=== PATIENT | female | born 1980 | race Two or more races ===

== ENCOUNTER 2020-01-28 06:53 | Outpatient (NON) | payer OTHER, SELFPAY ==
[2020-01-29 23:03] LABS: SARS-CoV-2 RNA PCR Negative
== END 2020-01-28 06:54 ==
LOC: ANHCOVIDDT 07:04
PROVIDERS: PCP Family Medicine; Visit Provider Family Medicine
DX: Z20.828 Contact with and (suspected) exposure to other viral communicable diseases (principal); R09.89 Other specified symptoms and signs involving the circulatory and respiratory systems
CPT/HCPCS: 87635; C9803; U0003

== ENCOUNTER 2023-04-05 15:58 | Emergency (ER) | payer OTHER, SELFPAY ==
--- NOTE | ~2023-04-05 | XR_ITS ---
EXAMINATION: XR chest 2V Exam Date/Time: 04/05/2023 16:17 TWILL CUTTER HISTORY: CHEST PRESSURE FOR 2 DAYS Comparison: 11/09/2011. RESULT: Lines, tubes, and devices: Cholecystectomy clips. Lungs and pleura: No focal consolidation or pneumothorax. Minimal right posterior costophrenic angle blunting. Cardiomediastinal silhouette: Stable. Other: No acute osseous or upper abdominal finding. IMPRESSION: Trace right pleural effusion versus chronic pleural blunting. Reviewed, dictated and finalized at location [facility]
[2023-04-05 16:08] VITALS: BP 140/82; PULSE 69; RESP 16; TEMP 36.6; O2SAT 100
--- NOTE | 2023-04-05 16:10 | ECG_ITS ---
Measurements Intervals [place] Rate: 65 P: 129 LA: 126 QRS: 52 QRSD: 82 T: 113 QT: 399 QTc: 418 Interpretive Statements SINUS RHYTHM LOW QRS VOLTAGE IN EXTREMITY LEADS POSSIBLE ANTERIOR MYOCARDIAL INFARCTION , OF INDETERMINATE AGE Electronically Signed On 04-06-2023 11:34:12 FRAMING MILL OPERATOR by Stefano Ruby M.D.
[2023-04-05 16:24] LABS: Basophils Percent Auto 0.5 % (0.2-1.2); Eosinophils Absolute Auto 0.1 K/mm3 (0-0.3); Eosinophils Percent Auto 1.1 % (0-4.4); Hemoglobin 11.5 g/dL (12.0-15.0); Immature Granulocyte Absolute 0.01 K/mm3 (0.00-0.031); Immature Granulocyte Percent A 0.2 % (0-0.5); Lymphocytes Percent Auto 27.8 % (18.3-44.2); Mean Corpuscular HGB Conc 31.1 g/dl (32-36); Mean Corpuscular Hemoglobin 24.5 pg (26-34); Mean Corpuscular Volume 78.9 fl (80-100); Mean Platelet Volume 10.2 fl (7.4-10.4); Monocytes Absolute Auto 0.3 K/mm3 (0.1-0.6); Monocytes Percent Auto 5.1 % (2.6-8.5); Neutrophils Absolute Auto 4.2 K/mm3 (1.3-6.7); Neutrophils Percent Auto 65.3 % (45.5-73.1); Platelet Count Result 262 k/mm3 (150-375); Red Blood Count 4.69 M/mm3 (4.2-5.4); Red Cell Distribution Width 14.1 % (11.5-14.5); White Blood Count 6.5 K/mm3 (4.5-10.0)
[2023-04-05 16:33] LABS: Partial Thromboplastin Time 34.3 SECONDS (22.3-36.8); Prothrombin Time 13.5 Seconds (11.1-14.7)
[2023-04-05 16:36] LABS: Alanine Aminotransferase 52 U/L (6-35); Albumin Level 4.5 g/dL (3.5-5.1); Alkaline Phosphatase 72 U/L (38-126); Anion Gap 8 mmol/L (8-16); Aspartate Amino Transferase 46 U/L (14-36); Bilirubin,Total 0.6 mg/dL (0.2-1.3); Blood Urea Nitrogen 10 mg/dL (7-17); Calcium 9.7 mg/dL (8.4-10.2); Carbon Dioxide 29 mmol/L (22-30); Chloride 101 mmol/L (98-107); Estimated CRCL calculation 109 ml/min; Estimated Glomerular Filt Rate > 60; Glucose 95 mg/dL (65-110); Lipase 87 U/L (23-300); Potassium 3.8 mmol/L (3.4-5.0); Sodium 138 mmol/L (137-145)
[2023-04-05 16:48] LABS: Troponin I < 0.012 ng/mL (0.000-0.034)
--- NOTE | 2023-04-05 17:38 | ED.ARRPALP ---
HPI - Arrhythmia/Palpitations General Chief Complaint: Arrhythmia/Palpitations <Raleigh Collier MD - Last Filed: 04/06/23 08:13> Stated Complaint: irregular heartbeat <Raleigh Collier MD - Last Filed: 04/06/23 08:13> Time Seen by Provider: 04/05/23 17:16 <Raleigh Collier MD - Last Filed: 04/06/23 08:13> History of Present Illness HPI narrative: 42-year-old female presents to the emergency department for evaluation left-sided chest pressure that is been ongoing for the past 2 days. Patient states she has no prior cardiac history. Patient states he has been having some restless sleep well the past few nights. Patient denies any cough colds or fevers. Patient denies any falls or injuries. Patient denies any history of PE DVT. <Raleigh Collier MD - Last Filed: 04/06/23 08:13> Related Data Home Medications: Home Medications Medication Instructions Recorded Confirmed levothyroxine 125 mcg tablet 125 mcg PO DAILY 12/23/22 12/23/22 (Synthroid) <Raleigh Collier MD - Last Filed: 04/06/23 08:13> Allergies/Adverse Reactions: Allergies Allergy/AdvReac Type Severity Reaction Status Date / Time No Known Allergies Allergy Unknown Verified 04/05/23 16:10 <Raleigh Collier MD - Last Filed: 04/06/23 08:13> Review of Systems Review of Systems: All systems reviewed & are unremarkable except as noted in HPI and below <Raleigh Collier MD - Last Filed: 04/06/23 08:13> [facility] Past Medical History Medical History: Medical History (Updated 04/06/23 @ 00:00 by Violeta Lew) Anemia Hypothyroid <Raleigh Collier MD - Last Filed: 04/06/23 08:13> Surgical History Surgical History: Surgical History (Updated 12/23/22 @ 09:37 by Ayde Khan MA) H/O colposcopy with cervical biopsy 2017 Hx of cholecystectomy <Raleigh Collier MD - Last Filed: 04/06/23 08:13> Family History Family History: Family History Mother Hypothyroidism <Raleigh Collier MD - Last Filed: 04/06/23 08:13> Social History Social History: Social History (Updated 12/23/22 @ 09:32 by Ayde Khan MA) Smoking status: Never smoker Alcohol intake: current Alcohol use details: socially Substance use: never Substance use type: does not use Lack of Transportation: No Lack of Food: Never True Current Housing: I Have Housing Concerned About Future Housing: No Difficulty Paying Gas/Electric Bills: No Difficulty Paying for Meds: No Currently Unemployed: No Education: Bachelor's Degree Difficulty w/ Childcare or Family Care: No Living arrangements: with family Occupation/Education: unemployed Gender identity (if verbalized by the patient): Female Sexual Orientation (if Verbalized by the Patient): Straight or Heterosexual <Raleigh Collier MD - Last Filed: 04/06/23 08:13> Exam Narrative: APPEARANCE: Well appearing, no pain, no distress, well-nourished. HEAD: normocephalic, atraumatic. EYES: PERRLA/EOMI, conjunctivae clear. NOSE: Normal no drainage EARS:TMS clear with good light reflex. THROAT: Pharynx clear, no exudate. NECK: Supple. No adenopathy, no masses. RESPIRATORY: Airway patent, respirations nonlabored. Clear to auscultation bilaterally, no rales, rhonchi, wheezing. CARDIOVASCULAR: Regular rate and rhythm without murmurs rubs or gallops. ABDOMINAL: Soft, nontender, nondistended, normal bowel sounds MUSCULOSKELETAL: Moves all extremities. Strength/ROM intact, No edema, No calf tenderness. NEURO: Alert. Cranial nerves II through XII intact. Grossly intact SKIN: Warm, dry. Normal Color <Raleigh Collier MD - Last Filed: 04/06/23 08:13> Course Course Emergency Course: 42-year-old female presented emergency department for evaluation of left-sided chest pressure. Patient is afebrile with no leukocytosis stable hemoglobin 11.5. Patient has an INR of 1.0. Patient's initia
[2023-04-05 18:07] VITALS: BP 135/82; PULSE 62; RESP 18; O2SAT 100
[2023-04-05 18:24] LABS: Influenza A QL RT-PCR Negative (Negative); Influenza B QL RT-PCR Negative (Negative); RSV RNA, RT-PCR Negative (Negative); SARS-CoV-2 RNA PCR Negative (Negative)
[2023-04-05] MEDS: ASPIRIN 81 MG CHEWABLE TABLET 324 MG PO (18:37)
[2023-04-05 18:39] VITALS: O2SAT 100
[2023-04-05 18:40] LABS: D Dimer 0.31 ug/mL (<0.48)
[2023-04-05 19:15] VITALS: BP 131/87; PULSE 65; RESP 16; O2SAT 100
[2023-04-05] MEDS: KETOROLAC 15 MG/ML VIAL (*BKC) IV PUSH (19:16)
--- NOTE | 2023-04-05 19:19 | ECG_ITS ---
Measurements Intervals [place] Rate: 57 P: 44 FL: 126 QRS: 34 QRSD: 83 T: 38 QT: 439 QTc: 428 Interpretive Statements SINUS BRADYCARDIA Electronically Signed On 04-06-2023 11:35:02 SNUFF MAKER by Stefano Ruby M.D.
[2023-04-05 19:40] LABS: Troponin I < 0.012 ng/mL (0.000-0.034)
[2023-04-05 20:09] VITALS: BP 143/93; PULSE 69; RESP 20; O2SAT 100
== END 2023-04-05 20:09 | disposition home or self-care (01) ==
PROVIDERS: Emergency Medicine; Emergency Provider Emergency Medicine; PCP Family Medicine
DX: R07.89 Other chest pain (principal); Z20.822 Contact with and (suspected) exposure to COVID-19; D64.9 Anemia, unspecified; E03.9 Hypothyroidism, unspecified; Z90.49 Acquired absence of other specified parts of digestive tract; R94.31 Abnormal electrocardiogram [ECG] [EKG]; R00.1 Bradycardia, unspecified
CPT/HCPCS: 36415; 71046; 80053; 83690; 84484; 85025; 85380; 85610; 85730; 87637; 93005; 96374; 99284; A9270; J1885

== ENCOUNTER 2023-08-08 09:29 | Outpatient (CLI) | payer OTHER, SELFPAY ==
[2023-08-08 18:36] LABS: Hemoglobin 11.3 g/dL (12.0-15.0); Mean Corpuscular HGB Conc 31.4 g/dl (32-36); Mean Corpuscular Hemoglobin 25.5 pg (26-34); Mean Corpuscular Volume 81.1 fl (80-100); Mean Platelet Volume 10.9 fl (7.4-10.4); Platelet Count Result 242 k/mm3 (150-375); Red Blood Count 4.44 M/mm3 (4.2-5.4); Red Cell Distribution Width 13.6 % (11.5-14.5); White Blood Count 6.4 K/mm3 (4.5-10.0)
[2023-08-08 18:39] LABS: Alanine Aminotransferase 29 U/L (6-35); Albumin Level 4.3 g/dL (3.5-5.1); Alkaline Phosphatase 59 U/L (38-126); Anion Gap 5 mmol/L (4-12); Aspartate Amino Transferase 31 U/L (14-36); Bilirubin,Total 0.6 mg/dL (0.2-1.3); Blood Urea Nitrogen 14 mg/dL (7-17); Calcium 9.3 mg/dL (8.4-10.2); Carbon Dioxide 28 mmol/L (22-30); Chloride 102 mmol/L (98-107); Cholesterol 172 mg/dL (0-200); Estimated Glomerular Filt Rate > 60; Glucose 91 mg/dL (65-110); HDL Direct 59 mg/dL; Potassium 4.3 mmol/L (3.4-5.0); Sodium 135 mmol/L (137-145); Triglycerides 98 mg/dL (<150)
[2023-08-08 18:50] LABS: LDL Cholesterol Direct 83 mg/dL
[2023-08-08 19:05] LABS: Thyroid Stimulating Hormone 0.335 uIU/mL (0.465-4.680)
[2023-08-08 19:44] LABS: Free T4 Free Thyroxine 1.37 ng/mL (0.78-2.19)
[2023-08-08 20:16] LABS: Iron 47 ug/dL (37-170)
[2023-08-08 20:23] LABS: Percent Iron Saturation 13 % (20-50)
[2023-08-12 11:39] LABS: Vitamin D 1,25 (OH)2 Total 32 pg/mL (18-72); Vitamin D2 1,25 (OH)2 10 pg/mL; Vitamin D3 1,25 (OH)2 22 pg/mL
== END 2023-08-08 09:30 | disposition home or self-care (01) ==
LOC: ANHGOSHLAB 09:29
PROVIDERS: PCP Family Medicine; Visit Provider Family Medicine
DX: E55.9 Vitamin D deficiency, unspecified (principal); E03.9 Hypothyroidism, unspecified; E66.9 Obesity, unspecified; Z79.899 Other long term (current) drug therapy; E61.1 Iron deficiency
CPT/HCPCS: 36415; 80053; 80061; 82652; 82728; 83540; 83550; 84439; 84443; 85027

== ENCOUNTER 2023-08-11 13:28 | Outpatient (CLI) | payer OTHER, SELFPAY ==
--- NOTE | ~2023-08-11 | US_ITS ---
Thyroid ultrasound. Clinical History: Thyroid disorder, nonspecific Findings: Real-time sonography of the thyroid gland was performed. The right lobe measures 5.1 x 2.3 x 1.7 cm. The left lobe measures 4.2 x 2.0 x 1.4 cm. The isthmus is 6 mm in AP diameter. Thyroid parenchyma is heterogeneous, without discrete nodule. Impression: Heterogeneous thyroid parenchyma without discrete nodule. Correlate with thyroid function tests as in dicated. Consider thyroid uptake scan as indicated.. Reviewed, dictated and finalized at location . Impression: Heterogeneous thyroid parenchyma without discrete nodule. Correlate with thyroi d function tests as indicated. Consider thyroid uptake scan as indicated..
== END 2023-08-11 13:29 ==
LOC: GOSHIMG 13:28
PROVIDERS: PCP Family Medicine; Visit Provider Family Medicine
DX: E07.9 Disorder of thyroid, unspecified (principal); E03.9 Hypothyroidism, unspecified
CPT/HCPCS: 76536

== ENCOUNTER 2023-09-02 12:55 | Outpatient (CLI) | payer OTHER, SELFPAY ==
--- NOTE | 2023-09-02 14:45 | NEURO_ITS ---
Impression: # Complains of numbness of upper extremities. # Normal Nerve Conduction Study; No Carpal Tunnel Syndrome or ulnar neuropathy. # Normal needle/EMG exam. # Clinical correlation recommended. Nerve Conduction Studies Anti Sensory Summary Table Stim Site NR Peak (ms) P-T Amp (?V) Site1 Site2 Delta-P (ms) Dist (cm) Roberto (m/s) Left Median Anti Sensory (2-3nd Digit) Wrist 2.9 36.6 Wrist 2-3nd Digit 2.9 14.0 48 Wrist 2.9 65.0 Wrist 2-3nd Digit 2.9 14.0 48 Right Median Anti Sensory (2-3nd Digit) Wrist 2.8 77.2 Wrist 2-3nd Digit 2.8 14.0 50 Wrist 3.1 76.0 Wrist 2-3nd Digit 2.8 14.0 50 Left Radial Anti Sensory (Base 1st Digit) Wrist 1.7 50.2 Wrist Base 1st Digit 1.7 0.0 Right Radial Anti Sensory (Base 1st Digit) Wrist 1.8 34.0 Wrist Base 1st Digit 1.8 0.0 Left Ulnar Anti Sensory (5th Digit) Wrist 2.3 33.2 Wrist 5th Digit 2.3 14.0 61 Right Ulnar Anti Sensory (5th Digit) Wrist 2.1 71.2 Wrist 5th Digit 2.1 14.0 67 Motor Summary Table Stim Site NR Onset (ms) O-P Amp (mV) Site1 Site2 Delta-0 (ms) Dist (cm) Roberto (m/s) Left Median Motor (Abd Poll Brev) Wrist 2.7 2.5 Elbow Wrist 4.8 29.0 60 Elbow 7.5 1.5 Right Median Motor (Abd Poll Brev) Wrist 2.6 3.5 Elbow Wrist 5.4 28.0 52 Elbow 8.0 2.5 Left Ulnar Motor (Abd Dig Minimi) Wrist 2.4 10.3 A Elbow Wrist 5.3 31.0 58 A Elbow 7.7 9.5 Right Ulnar Motor (Abd Dig Minimi) Wrist 2.3 9.7 A Elbow Wrist 5.2 31.0 60 A Elbow 7.5 7.1 F Wave Studies NR F-Lat (ms) L-R F-Lat (ms) Left Median (Mrkrs) (Abd Poll Brev) 25.86 0.62 Right Median (Mrkrs) (Abd Poll Brev) 26.48 0.62 Left Ulnar (Mrkrs) (Abd Dig Min) 25.31 0.70 Right Ulnar (Mrkrs) (Abd Dig Min) 26.02 0.70 EMG Side Muscle Nerve Root Ins Act Fibs Amp Dur Recrt Comment Right 1stDorInt Ulnar C8-T1 Nml Nml Nml Nml Nml Right Ext Indicis Radial (Post Int) C7-8 Nml Nml Nml Nml Nml Right Ext Digitorum Radial (Post Int) C7-8 Nml Nml Nml Nml Nml Right BrachioRad Radial C5-6 Nml Nml Nml Nml Nml Right PronatorTeres Median C6-7 Nml Nml Nml Nml Nml Right Abd Poll Brev Median C8-T1 Nml Nml Nml Nml Nml Right ABD Dig Min Ulnar C8-T1 Nml Nml Nml Nml Nml Left 1stDorInt Ulnar C8-T1 Nml Nml Nml Nml Nml Left Ext Indicis Radial (Post Int) C7-8 Nml Nml Nml Nml Nml Left Ext Digitorum Radial (Post Int) C7-8 Nml Nml Nml Nml Nml Left BrachioRad Radial C5-6 Nml Nml Nml Nml Nml Left PronatorTeres Median C6-7 Nml Nml Nml Nml Nml Left Abd Poll Brev Median C8-T1 Nml Nml Nml Nml Nml Left ABD Dig Min Ulnar C8-T1 Nml Nml Nml Nml Nml Right Biceps Musculocut C5-6 Nml Nml Nml Nml Nml Right Triceps Radial C6-7-8 Nml Nml Nml Nml Nml Right Deltoid Axillary C5-6 Nml Nml Nml Nml Nml Left Biceps Musculocut C5-6 Nml Nml Nml Nml Nml Left Triceps Radial C6-7-8 Nml Nml Nml Nml Nml Left Deltoid Axillary C5-6 Nml Nml Nml Nml Nml MTDD
== END 2023-09-02 12:56 | disposition home or self-care (01) ==
PROVIDERS: PCP Family Medicine; Visit Provider Family Medicine
DX: R20.0 Anesthesia of skin (principal)
CPT/HCPCS: 95886; 95911

== ENCOUNTER 2024-01-16 10:02 | Outpatient (CLI) | payer OTHER, SELFPAY ==
[2024-01-16 12:02] LABS: Hematocrit 34.7 % (37.0-47.0); Hemoglobin 10.9 g/dL (12.0-15.0); Mean Corpuscular HGB Conc 31.4 g/dl (32-36); Mean Corpuscular Volume 79.6 fl (80-100); Mean Platelet Volume 10.8 fl (7.4-10.4); Platelet Count Result 267 k/mm3 (150-375); Red Blood Count 4.36 M/mm3 (4.2-5.4); Red Cell Distribution Width 13.7 % (11.5-14.5); White Blood Count 5.2 K/mm3 (4.5-10.0)
[2024-01-16 12:12] LABS: Alanine Aminotransferase 41 U/L (6-35); Albumin Level 4.6 g/dL (3.5-5.1); Alkaline Phosphatase 55 U/L (38-126); Anion Gap 7 mmol/L (4-12); Aspartate Amino Transferase 53 U/L (14-36); Bilirubin,Total 0.8 mg/dL (0.2-1.3); Blood Urea Nitrogen 15 mg/dL (7-17); Calcium 9.3 mg/dL (8.4-10.2); Carbon Dioxide 30 mmol/L (22-30); Chloride 99 mmol/L (98-107); Cholesterol 212 mg/dL (0-200); Estimated Glomerular Filt Rate > 60; Glucose 93 mg/dL (65-110); HDL Direct 83 mg/dL; Potassium 4.1 mmol/L (3.4-5.0); Sodium 136 mmol/L (137-145); Triglycerides 67 mg/dL (<150)
[2024-01-16 12:13] LABS: Iron 58 ug/dL (37-170)
[2024-01-16 12:17] LABS: Rheumatoid Factor < 12.0 IU/ML (<12)
[2024-01-16 12:23] LABS: LDL Cholesterol Direct 86 mg/dL
[2024-01-16 12:30] LABS: Percent Iron Saturation 14 % (20-50)
[2024-01-16 12:53] LABS: Ferritin 6.48 ng/mL (6.24-137)
[2024-01-19 15:27] LABS: ANA Cascade Screen NEGATIVE (NEGATIVE)
[2024-01-21 13:28] LABS: Vitamin D 1,25 (OH)2 Total 45 pg/mL (18-72); Vitamin D2 1,25 (OH)2 <8 pg/mL; Vitamin D3 1,25 (OH)2 45 pg/mL
== END 2024-01-16 10:03 | disposition home or self-care (01) ==
LOC: ANHGOSHLAB 10:03
PROVIDERS: PCP Family Medicine; Visit Provider Family Medicine
DX: E03.9 Hypothyroidism, unspecified (principal); E55.9 Vitamin D deficiency, unspecified; E61.1 Iron deficiency; E66.9 Obesity, unspecified; M25.50 Pain in unspecified joint; R53.83 Other fatigue; Z79.899 Other long term (current) drug therapy
CPT/HCPCS: 36415; 80053; 80061; 82652; 82728; 83540; 83550; 84439; 84443; 85027; 86038; 86225; 86235; 86364; 86430

== ENCOUNTER 2024-05-14 15:38 | Outpatient (CLI) | payer OTHER, SELFPAY ==
--- NOTE | ~2024-05-14 | MM_ITS ---
EXAMINATION: MM screening laura BI w mercedes HISTORY: Screening TECHNIQUE: Craniocaudal and mediolateral oblique 3-D tomosynthesis images were obtained and synthetic 2-D images were generated. CAD analysis was submitted and interpreted. COMPARISON: No prior mammogram is available for comparison at this institution. BREAST PARENCHYMAL COMPOSITION: Not dense: There are scattered areas of fibroglandular density. FINDINGS: There is no evidence of suspicious mass, calcification, or architectural distortion to sugg est malignancy in either breast. There has been no suspicious interval change. IMPRESSION: 1. No mammographic evidence of malignancy. 2. Recommend routine screening mammography in one year. BI-RADS Category 1: Negative Reviewed, dictated and finalized at location B.
--- OUTSIDE RECORDS SUMMARY | 2024-05-14 15:43 | XMS_ITS ---
Author Organization Unknown Medications Medication Instructions Effective Dates (start - stop) Status fluconazole 150 MG Oral Tablet 2023-04-28 T00:00:00Z - Completed mupirocin 0.02 MG/MG Topical Ointment - Completed fluconazole 150 MG Oral Tablet 2023-05-27 T00:00:00Z - Completed sulfamethoxazole 800 MG / trimethoprim 160 MG Oral Tablet - Compl eted fluconazole 150 MG Oral Tablet 2022-11-26 T00:00:00Z - Completed levothyroxine sodium 0.125 M G Oral Tablet - Completed clobetasol propionate 0.5 MG /ML Topical Cream - Completed clindamycin 0.01 MG/MG Topical Gel 08-06T00:00:00Z - Completed cephalexin 500 MG Oral Capsule 2023-05-27 T00:00:00Z - Completed sulfamethoxazole 800 MG / trimethoprim 160 MG Oral Tablet - Compl eted doxycycline hyclate 100 MG O ral Capsule - Completed naproxen 500 MG Oral Tablet [id number] :00:00Z - Completed fluconazole 150 MG Oral Tablet 2023-02-18 T00:00:00Z - Completed valacyclovir 1000 MG Oral Tablet T00:00:00Z - Completed - - Compl eted clobetasol propionate 0.5 MG /ML Topical Cream - Completed fluconazole 200 MG Oral Tablet 2022-12-27 T00:00:00Z - Completed levothyroxine sodium 0.125 M G Oral Tablet - Completed levothyroxine sodium 0.125 M G Oral Tablet - Completed Patient Care team information Name Category Status Period Participants - - Proposed period not known -
--- OUTSIDE RECORDS SUMMARY | 2024-05-14 15:43 | XMS_ITS | Clinical Summary ---
Author Organization [facility] Address [address] [place] [address] Phone Care Team Providers Care Wildlife Biologist Name Role Phone Kel Puentes MD Primary Care Provider [phone] Allergies No known active allergies Medications levothyroxine 75 mcg tablet Take 75 mcg by mouth daily . 04/02/2018 Active ferrous sulfate 325 mg (65 mg iron) tablet Take 325 mg by mouth daily. Active Active Problems Problem Noted Date Diagnosed Date Vitamin B12 deficiency (non anemic) 06/04/2018 Iron deficiency anemia 05/04/2018 Comments Yes Family History Relation Name Status Comments Father Alive Mother Alive Sister 1 Alive Sister 2 Alive Social History Tobacco Use Types Packs/Day Years Used Date Smoking Tobacco: Never Alcohol Use Standard Drinks/Week Comments Yes 0 (1 standard drink = 0.6 oz pur e alcohol) rare Comments Yes Sex and Gender Information Value Date Recorded Sex Assigned at Not on file Legal Sex Female 9:39 PM PROGRAM SERVICES PLANNER Gender Identity Not on file Sexual Orientation Not on file Last Filed Vital Signs Vital Sign Reading Time Taken Comments Blood Pressure 110/69 06/04/2018 11:56 AM CDT Pulse 87 05/04/2018 8:46 AM PROGRAM SERVICES PLANNER Temperature 36.6 C (97.8 F) 06/04/2018 11:56 AM CDT Respiratory Rate 20 05/04/2018 8:46 AM PROGRAM SERVICES PLANNER Oxygen Saturation 97% 06/04/2018 11:56 AM CDT Inhaled Oxygen Concentration - - Weight 101.2 kg (223 lb) 06/04/2018 11:56 AM CDT Height 170.2 cm (5' 7 ) 06/04/2018 11:56 AM CDT Body Mass Index 34.93 06/04/2018 11:56 AM CDT Plan of Treatment Health Maintenance Due Date Last Done Comments DTAP/TDAP/TD VACCINES (1 - Tdap) 08/23/1998 HEPATITIS B VACCINES (1 of 3 - 19+ 3-dose series) 08/23/1998 CERVICAL CANCER SCREENING 08/23/2009 BREAST CANCER SCREENING 2019 INFLUENZA VACCINE (#1) 2023 RSV VACCINE (60+ or ) (1 - 1-dose 75+ series) 08/23/2054 HPV VACCINES Aged Out No longer eligi ble based on patient's age to complete this topic PNEUMOCOCCAL VACCINE 0-49 YEARS Aged Out No longer eligible based on patient's age to complete this topic Insurance [employer] OPEN ACCESS [employer] OPEN ACCESS Care Teams Wildlife Biologist Relationship Specialty Start Date End Date Kel Puentes MD PCP - General Family Practice 05/04/18
== END 2024-05-14 15:39 | disposition home or self-care (01) ==
PROVIDERS: PCP Family Medicine; Visit Provider Obstetrics & Gynecology
DX: Z12.31 Encounter for screening mammogram for malignant neoplasm of breast (principal)
CPT/HCPCS: 77063; 77067

== ENCOUNTER 2024-06-16 08:13 | Outpatient (CLI) | payer OTHER, SELFPAY ==
--- OUTSIDE RECORDS SUMMARY | 2024-06-16 08:25 | XMS_ITS | Clinical Summary ---
Author Organization [facility] Address [address] [place] [address] Phone Care Team Providers Care Business Associate Name Role Phone Kel Puentes MD Primary Care Provider [phone] Allergies No known active allergies Medications levothyroxine [...] on file Legal Sex Female 9:39 PM MINING PLANT OPERATOR Gender Identity Not on file Sexual Orientation Not on file Last Filed Vital Signs Vital Sign Reading Time Taken Comments Blood Pressure 110/69 06/04/2018 11:56 AM CDT Pulse 87 05/04/2018 8:46 AM MINING PLANT OPERATOR Temperature 36.6 C (97.8 F) 06/04/2018 11:56 AM CDT Respiratory Rate 20 05/04/2018 8:46 AM MINING PLANT OPERATOR Oxygen Saturation 97% 06/04/2018 11:56 AM CDT [...] of 3 - 19+ 3-dose series) 08/23/1998 HPV/Cotest (21-29) 08/23/2000 PAP SMEAR 08/23/2000 CERVICAL CANCER SCREENING 08/23/2009 HPV/Cotest (30-65) 08/23/2009 PAP SMEAR 08/23/2009 BREAST CANCER SCREENING 2019 INFLUENZA VACCINE (#1) 2023 RSV VACCINE (60+ or ) (1 - 1-dose 75+ series) 08/23/2054 HPV VACCINES Aged Out No longer eligi ble based on patient's age to complete this topic PNEUMOCOCCAL VACCINE 0-49 YEARS Aged Out No longer eligible based on patient's age to complete this topic Insurance [employer] OPEN ACCESS [employer] OPEN ACCESS Care Teams Business Associate Relationship Specialty Start Date End Date Kel Puentes MD PCP - General Family Practice 05/04/18
[2024-06-16 13:17] LABS: Hematocrit 33.2 % (37.0-47.0); Mean Corpuscular HGB Conc 30.1 g/dl (32-36); Mean Corpuscular Hemoglobin 24.1 pg (26-34); Mean Platelet Volume 10.5 fl (7.4-10.4); Platelet Count Result 252 k/mm3 (150-375); Red Blood Count 4.15 M/mm3 (4.2-5.4); Red Cell Distribution Width 14.6 % (11.5-14.5); White Blood Count 5.4 K/mm3 (4.5-10.0)
[2024-06-16 13:59] LABS: Iron 37 ug/dL (37-170)
[2024-06-16 14:10] LABS: Percent Iron Saturation 9 % (20-50)
[2024-06-16 14:18] LABS: Free T4 Free Thyroxine 1.06 ng/dL (0.78-2.19)
[2024-06-16 14:53] LABS: Alanine Aminotransferase 26 U/L (6-35); Albumin Level 4.2 g/dL (3.5-5.1); Alkaline Phosphatase 50 U/L (38-126); Anion Gap 7 mmol/L (4-12); Aspartate Amino Transferase 48 U/L (14-36); Bilirubin,Total 0.3 mg/dL (0.2-1.3); Blood Urea Nitrogen 13 mg/dL (7-17); Calcium 8.8 mg/dL (8.4-10.2); Carbon Dioxide 29 mmol/L (22-30); Chloride 102 mmol/L (98-107); Cholesterol 182 mg/dL (0-200); Estimated Glomerular Filt Rate > 60; Glucose 88 mg/dL (65-110); HDL Direct 63 mg/dL; Potassium 4.7 mmol/L (3.4-5.0); Sodium 138 mmol/L (137-145); Triglycerides 91 mg/dL (<150)
[2024-06-16 15:04] LABS: LDL Cholesterol Direct 80 mg/dL
== END 2024-06-16 08:14 | disposition home or self-care (01) ==
LOC: ANHGOSHLAB 08:14
PROVIDERS: PCP Nurse Practitioner; Visit Provider Nurse Practitioner
DX: E61.1 Iron deficiency (principal); E03.9 Hypothyroidism, unspecified; D64.9 Anemia, unspecified; E78.5 Hyperlipidemia, unspecified
CPT/HCPCS: 36415; 80053; 80061; 82728; 83540; 83550; 84439; 84443; 85027

== ENCOUNTER 2024-06-16 08:34 | Outpatient (CLI) | payer OTHER, SELFPAY ==
--- NOTE | ~2024-06-16 | XR_ITS ---
Cervical Spine: AP, lateral, open-mouth views Clinical History: Pain Findings: There is mild reversal of the normal cervical lordosis. No fracture or subluxation. There i s mild degenerative disc change at C5-C6. Pre-vertebral soft tissues are unremarkable. Impression: Minimal degenerative change, as above. Reviewed, dictated and finalized at [facility]. Impression: Minimal degenerative change, as above.
== END 2024-06-16 08:35 | disposition home or self-care (01) ==
LOC: GOSHIMG 08:34
PROVIDERS: PCP Nurse Practitioner; Visit Provider Nurse Practitioner
DX: M54.2 Cervicalgia (principal); M25.562 Pain in left knee
CPT/HCPCS: 72040; 73562

== ENCOUNTER 2024-06-16 12:29 | Outpatient (CLI) | payer OTHER, SELFPAY ==
--- NOTE | ~2024-06-16 | US_ITS ---
Thyroid ultrasound. Clinical History: Disorder of thyroid, unspecified Findings: Real-time sonography of the thyroid gland was performed. The right lobe measures 4.0 x 1.8 x 2.5 cm. The left lobe measures 4.8 x 1.6 x 2.0 cm. The isthmus is 7 mm in AP diameter. Thyroid par enchyma is diffusely heterogeneous, without definite discrete nodule. Impression: Heterogeneous thyroid parenchyma without discrete nodule.. Reviewed, dictated and finalized at [facility]. Impression: Heterogeneous thyroid parenchyma without discrete nodule..
== END 2024-06-16 12:30 | disposition home or self-care (01) ==
LOC: GOSHIMG 12:29
PROVIDERS: PCP Nurse Practitioner; Visit Provider Nurse Practitioner
DX: E07.9 Disorder of thyroid, unspecified (principal)
CPT/HCPCS: 76536

== ENCOUNTER 2024-07-20 17:44 | Emergency (ER) | payer OTHER, SELFPAY ==
[2024-07-20 17:54] VITALS: BP 119/85; PULSE 87; RESP 16; TEMP 36.6; O2SAT 100
[2024-07-20 18:03] LABS: EDSTREPNEGPOS1 Negative (Negative)
--- NOTE | 2024-07-20 18:07 | ED.URI ---
HPI - URI/Sore Throat General Chief Complaint: Upper Respiratory Infection Stated Complaint: Strep Symptoms Time Seen by Provider: 07/20/24 18:01 Source: patient and RN notes reviewed Mode of arrival: ambulatory Limitations: no limitations History of Present Illness HPI Narrative: 43 year old female presents with concern of for exposure to strep throat. Reports her daughter has strep throat. Reports she started having a sore throat today with chills. She denies runny nose, stuffy nose, cough, fever. She has not taken any medications for her symptoms. MD elicited complaint: cough and sore throat Related Data Home Medications ?Medication ?Instructions ?Recorded ?Confirmed ?Last Taken ?Type magnesium 200 mg tablet 200 mg PO DAILY 08/07/23 06/16/24 Unknown History mecobalamin (vitamin B12) 500 mcg mcg PO 08/07/23 06/16/24 Unknown History chewable tablet ferrous sulfate 325 mg (65 mg 325 mg PO .COMPLEX 06/16/24 06/16/24 Unknown History iron) tablet Allergies Allergy/AdvReac Type Severity Reaction Status Date / Time No Known Allergies Allergy Unknown Verified 07/20/24 17:50 Review of Systems Review of Systems: CONSTITUTIONAL: Denies malaise, sweats, or fever. Reports chills EYES: Denies visual changes, redness, or discharge. ENT: Denies rhinorrhea, congestion, sinus pain, otalgia. Reports sore throat. CARDIOVASCULAR: Denies chest pain, palpitations, or edema. RESPIRATORY: Denies cough. Denies dyspnea. GASTROINTESTINAL: Denies abdominal pain, nausea, vomiting, diarrhea SKIN: Denies rash or itching. MUSCULOSKELETAL: Denies myalgia. NEUROLOGIC: Denies headache. All systems reviewed & are unremarkable except as noted in HPI and below PMFSH Past Medical History Medical History Anemia Hypothyroid Surgical History Surgical History H/O colposcopy with cervical biopsy 2017 Hx of cholecystectomy Family History Family History Mother Hypothyroidism Social History Social History Smoking status: Never smoker Alcohol intake: current Alcohol use details: socially Substance use: never Substance use type: does not use Do You Feel Safe in your Home?: Yes Lack of Transportation: No Lack of Food: Never True Current Housing: Decline to Answer Concerned About Future Housing: Decline to Answer Difficulty Paying Gas/Electric Bills: Decline to Answer Difficulty Paying for Meds: Decline to Answer Currently Unemployed: Decline to Answer Education: Decline to Answer Difficulty w/ Childcare or Family Care: Decline to Answer Living arrangements: with family Occupation/Education: occupation Gender identity (if verbalized by the patient): Female Sexual Orientation (if Verbalized by the Patient): Straight or Heterosexual Comments At time of signature, agree with nursing past medical, surgical, social and family history. There is no relevant family history pertinent to the presenting complaint Exam Narrative: GENERAL: Well-appearing, well-nourished, and in no acute distress. HEAD: Normocephalic EYES: PERRLA, conjunctivae clear ENT: Nares clear. Mucous membranes moist. TM pearly cardenas with dull light reflex bilaterally; no tragal tenderness. Oropharynx not erythematous without lesions. Tonsils not enlarged and without exudate, no drooling, no hoarseness, no trismus, uvula midline. NECK: Supple. No lymphadenopathy CHEST: Clear to auscultation, breath sounds equal. No wheezing, rhonchi, rales, or stridor. No respiratory distress, speaks in full sentences. HEART: Regular rate and rhythm. No murmur heard. SKIN: Warm, dry, no rash. NEURO: Alert and oriented x3. PSYCH: Normal mood and affect Course Course Emergency Course: Patient is aware of diagnosis, understands and agrees to treatment plan. Anticipatory guidance given. Patient agrees to follow-up as directed and is aware of reasons to seek care at the emergency department. Portions of this record may have been created with voice recognition software Level of Care: Express Care Visit Vital Signs Vital signs: Vital Signs Temperature 97.9 F 07/20/24 17:54 Pulse Rate 87 07/20/24 17:54 Respiratory Rate 16 07/20/24 17:54 Blood Pressure 119/85 07/20/24 17:54 Pulse Oximetry 100 07/20/24 17:54 Temperature 97.9 F 07/20/24 17:54 Pulse Rate 87 07/20/24 17:54 Respiratory Rate 16 07/20/24 17:54 Blood Pressure 119/85 07/20/24 17:54 Pulse Oximetry 100 07/20/24 17:54 Reviewed. MDM - URI/Sore Throat MDM Narrative Medical decision making narrative: Differential diagnosis considered: Mancia virus, strep pharyngitis, allergic rhinitis, upper respiratory tract infection, sinusitis, rhinosinusitis, nasopharyngitis. viral pharyngitis, otitis media, otitis externa, pneumonia, bronchitis, viral cough syndrome, viral syndrome, and influenza. Exam findings show no acute concerns or changes; patient is non-toxic appearing and is in no distress. Patient is appropriate for outpatient treatment and follow-up. Lab Data Attestation: I reviewed the patient's lab results. Labs: Lab Results 07/20/24 Range/Units 18:01 POC Grp A Strep Screen Negative (Negative) Critical Care Time Critical Care Time Critical Care Time: No Discharge Plan Discharge Clinical Impression: Pharyngitis, Exposure to strep throat Patient Disposition: Home Condition: Stable Instructions: Antibiotic Form, Strep Throat (ED) Additional Instructions: -Take the medication as prescribed. Throw away the toothbrush after 24hours of antibiotic. -Eat and drink things that are easy to swallow, like tea or soup, or popsicles to suck on. -Oral rinses such as: Salt water gargles and/or may use topical anesthetic (eg. Chloraseptic spray) or lozenges to relieve dryness or throat pain). -Take Tylenol and ibuprofen as needed for pain and fever as directed. -Frequent hand washing or hand bone glue maker is one of the best ways to prevent spread of infection. -Follow up with primary care provider in 2-3 days if condition is not improving; or seek ER visit if you have trouble breathing, cannot drink enough fluids, have muffled voice, difficulty opening your mouth, or severe swelling. Patient Language: Nepali Prescriptions: New penicillin V potassium 500 mg tablet 500 mg PO Q12H 10 Days Qty: 20 0RF No Action clobetasol 0.05 % cream 1 applic topical DAILY PRN (Reason: vulvar itching) Qty: 60 2RF mecobalamin (vitamin B12) 500 mcg tablet,chewable PO magnesium 200 mg tablet 200 mg PO DAILY clindamycin phosphate 1 % gel 1 applic topical BID Qty: 60 5RF ferrous sulfate 325 mg (65 mg iron) tablet 325 mg PO .COMPLEX Rx Instructions: 325 mg orally; Alternate your dosage every other day from 1 pill to two pills levothyroxine [Synthroid] 125 mcg tablet 125 mcg PO DAILY Qty: 90 1RF Follow-up/Referrals: PHYSICIAN,CONSTRUCTION LINEMAN [Primary Care Provider] - Time of Disposition: 18:15
== END 2024-07-20 18:18 | disposition home or self-care (01) ==
PROVIDERS: Emergency Provider Nurse Practitioner
DX: J02.9 Acute pharyngitis, unspecified (principal); Z20.818 Contact with and (suspected) exposure to other bacterial communicable diseases; E03.9 Hypothyroidism, unspecified
CPT/HCPCS: 87081; 87880; 99213; G0463

== ENCOUNTER 2024-11-12 08:15 | Outpatient (CLI) | payer OTHER, SELFPAY ==
--- OUTSIDE RECORDS SUMMARY | 2024-11-12 08:20 | XMS_ITS | Clinical Summary ---
Author Organization [facility] Address [address] [place] [address] Phone Care Team Providers Care Adhesive Sprayer Name Role Phone Kel Puentes MD Primary Care Provider Allergies No known active allergies Medications levothyroxine [...] on file Legal Sex Female 9:39 PM GEOMETRY TEACHER Gender Identity Not on file Sexual Orientation Not on file Last Filed Vital Signs Vital Sign Reading Time Taken Comments Blood Pressure 110/69 06/04/2018 11:56 AM CDT Pulse 87 05/04/2018 8:46 AM GEOMETRY TEACHER Temperature 36.6 C (97.8 F) 06/04/2018 11:56 AM CDT Respiratory Rate 20 05/04/2018 8:46 AM GEOMETRY TEACHER Oxygen Saturation 97% 06/04/2018 11:56 AM CDT Inhaled Oxygen Concentration - - Weight 101.2 kg (223 lb) 06/04/2018 11:56 AM CDT Height 170.2 cm (5' 7) 06/04/2018 11:56 AM CDT Body Mass Index 34.93 06/04/2018 11:56 AM CDT Plan of Treatment Health Maintenance Due Date Last Done Comments DTAP/TDAP/TD VACCINES (1 - Tdap) 08/23/1998 HEPATITIS B VACCINES (1 of 3 - 19+ 3-dose series) 08/02 HPV/Cotest (21-29) 08/23/2000 HPV VACCINES (1 - 3-dose SCDM series) 08/23/2006 CERVICAL CANCER SCREENING 08/23/2009 HPV/Cotest (30-65) 08/23/2009 PAP SMEAR 08/23/2009 BREAST CANCER SCREENING 2019 COLORECTAL SCREENING 08/23/2024 Colorectal Cancer Screening 08/23/2024 FIT-DNA Q 3 years 08/23/2024 FIT/FOBT Q 1 year 08/23/2024 Flex Sig/CT Colonography Q 5 years 08/23/2024 INFLUENZA VACCINE (#1) 2024 RSV VACCINE (60+ or ) (1 - 1-dose 75+ series) 08/23/2054 Insurance [employer] O OPEN ACCESS [employer] OPEN ACCESS Care Teams Adhesive Sprayer Relationship Specialty Start Date End Date Kel Puentes MD PCP - General Family Practice 05/04/18
[2024-11-12 18:09] LABS: Hematocrit 35.7 % (37.0-47.0); Hemoglobin 11.3 g/dL (12.0-15.0); Mean Corpuscular HGB Conc 31.7 g/dl (32-36); Mean Corpuscular Hemoglobin 25.5 pg (26-34); Mean Corpuscular Volume 80.4 fl (80-100); Platelet Count Result 241 k/mm3 (150-375); Red Blood Count 4.44 M/mm3 (4.2-5.4); White Blood Count 6.3 K/mm3 (4.5-10.0)
[2024-11-12 19:10] LABS: Alanine Aminotransferase 27 U/L (6-35); Albumin Level 4.4 g/dL (3.5-5.1); Alkaline Phosphatase 53 U/L (38-126); Anion Gap 10 mmol/L (4-12); Aspartate Amino Transferase 38 U/L (14-36); Bilirubin,Total 0.5 mg/dL (0.2-1.3); Blood Urea Nitrogen 13 mg/dL (7-17); Calcium 9.2 mg/dL (8.4-10.2); Carbon Dioxide 24 mmol/L (22-30); Chloride 101 mmol/L (98-107); Cholesterol 188 mg/dL (0-200); Estimated Glomerular Filt Rate > 60; Glucose 106 mg/dL (65-110); HDL Direct 66 mg/dL; Potassium 4.7 mmol/L (3.4-5.0); Sodium 135 mmol/L (137-145); Total Protein 7.9 g/dL (6.3-8.2); Triglycerides 93 mg/dL (<150)
[2024-11-12 19:26] LABS: Free T4 Free Thyroxine 1.22 ng/dL (0.78-2.19)
[2024-11-12 19:46] LABS: Thyroid Stimulating Hormone 1.260 uIU/mL (0.465-4.680)
== END 2024-11-12 08:16 | disposition home or self-care (01) ==
LOC: ANHGOSHLAB 08:16
PROVIDERS: PCP Family Medicine; Visit Provider Nurse Practitioner
DX: Z00.00 Encounter for general adult medical examination without abnormal findings (principal); E55.9 Vitamin D deficiency, unspecified; E03.9 Hypothyroidism, unspecified
CPT/HCPCS: 36415; 80053; 80061; 82306; 84439; 84443; 85027

== ENCOUNTER 2024-11-23 15:20 | Outpatient (CLI) | payer OTHER, SELFPAY ==
[2024-11-23 19:35] LABS: Magnesium 2.2 mg/dL (1.6-2.3)
[2024-11-23 19:55] LABS: Iron 47 ug/dL (37-170)
[2024-11-23 20:04] LABS: Percent Iron Saturation 12 % (20-50)
[2024-11-23 20:29] LABS: Vitamin B12 406.0 pg/mL (239-931)
[2024-11-23 20:31] LABS: Ferritin 10.70 ng/mL (6.24-137)
== END 2024-11-23 15:21 | disposition home or self-care (01) ==
LOC: ANHGOSHLAB 15:21
PROVIDERS: PCP Family Medicine; Visit Provider Nurse Practitioner Family
DX: E61.1 Iron deficiency (principal); R00.2 Palpitations
CPT/HCPCS: 36415; 82607; 82728; 83540; 83550; 83735

== ENCOUNTER 2025-01-02 11:13 | Emergency (ER) | payer OTHER, SELFPAY ==
[2025-01-02 11:24] VITALS: BP 138/90; PULSE 85; RESP 16; TEMP 36.4; O2SAT 100
--- NOTE | 2025-01-02 11:57 | ED.WOUNDLAC ---
HPI - Wound/Laceration General Chief Complaint: Wound/Laceration Stated Complaint: R FINGER REDNESS/SWELLING Time Seen by Provider: 01/02/25 11:40 Source: patient Mode of arrival: ambulatory Limitations: no limitations History of Present Illness HPI narrative: Liane is a 44-year-old female patient presenting to the clinic today with complaints of right 3rd finger redness and swelling. She reports she went to the [facility] and had a manicure completed few days ago. Developed redness and swelling and the right 3rd finger yesterday. Has tried to soak it in warm water and applied antibiotic ointment. Area is draining some yellowish brown pus at this time Related Data Home Medications ?Medication ?Instructions ?Recorded ?Confirmed ?Last Taken ?Type magnesium 200 mg tablet 200 mg PO DAILY 08/07/23 11/23/24 Unknown History ferrous sulfate 325 mg (65 mg 325 mg PO .COMPLEX 06/16/24 01/02/25 Unknown History iron) tablet cetirizine 10 mg capsule (Allergy 10 mg PO DAILY 11/23/24 11/23/24 Unknown History Relief (cetirizine)) clindamycin phosphate 1 % topical 1 applic topical BID PRN 11/23/24 11/23/24 Unknown History gel fluticasone propionate 50 1 spray intranasal DAILY PRN 11/23/24 11/23/24 Unknown History mcg/actuation nasal spray,suspension (Flonase Allergy Relief) mecobalamin (vitamin B12) 500 mcg mcg PO DAILY 11/23/24 11/23/24 Unknown History chewable tablet Allergies Allergy/AdvReac Type Severity Reaction Status Date / Time No Known Allergies Allergy Unknown Verified 01/02/25 11:30 Review of Systems Review of Systems: Pertinent positives per HPI. Patient denies any fever, chills, rash, headache, visual changes, dizziness, cough, runny nose, sore throat, shortness of breath, chest pain, palpitations, nausea, vomiting, diarrhea, constipation, abdominal pain, or any urinary issues. [facility] Past Medical History Medical History Anemia Hypothyroid Surgical History Surgical History H/O colposcopy with cervical biopsy 2017 Hx of cholecystectomy Family History Family History Mother Hypothyroidism Social History Social History Smoking status: Current some day smoker Alcohol intake: current Alcohol use details: socially Substance use: never Substance use type: does not use Do You Feel Safe in your Home?: Yes Lack of Transportation: No Lack of Food: Never True Current Housing: Decline to Answer Concerned About Future Housing: Decline to Answer Difficulty Paying Gas/Electric Bills: Decline to Answer Difficulty Paying for Meds: Decline to Answer Currently Unemployed: Decline to Answer Education: Decline to Answer Difficulty w/ Childcare or Family Care: Decline to Answer Living arrangements: with family Occupation/Education: occupation Gender identity (if verbalized by the patient): Female Sexual Orientation (if Verbalized by the Patient): Straight or Heterosexual Comments At the time of my signature, I reviewed and agree with the nursing past medical, surgical, social, and family history. There is no relevant family history pertinent to the patient complaint. Exam Narrative: General: Well-developed, well nourished, in no apparent distress Head: Normocephalic, atraumatic. Cardio: Regular rate and rhythm, s1 and s2 normal, no murmur appreciated. Resp: Clear to auscultation bilaterally, no rhonchi, rales, wheezing or rubs. Integumentary: [place], warm, and dry, redness, swelling, and tenderness to palpation with yellowish brown discharge expressed from the right distal 3rd medial finger. Course Course Emergency Course: Portions of this record may have been created with voice recognition software. Level of Care: Express Care Visit Vital Signs Vital signs: Vital Signs Temperature 36.4 C 01/02/25 11:24 Pulse Rate 85 01/02/25 11:24 Respiratory Rate 16 01/02/25 11:24 Blood Pressure 138/90 01/02/25 11:24 Pulse Oximetry 100 01/02/25 11:24 Temperature 36.4 C 01/02/25 11:24 Pulse Rate 85 01/02/25 11:24 Respiratory Rate 16 01/02/25 11:24 Blood Pressure 138/90 01/02/25 11:24 Pulse Oximetry 100 01/02/25 11:24 Vital signs reviewed MDM - Wound/Laceration MDM Narrative Medical decision making narrative: At the time of visit patient is resting comfortably on the exam table. Patient appears to be nontoxic. Complaints of right 3rd finger redness and swelling. She reports she went to the nail salon and had a manicure completed few days ago. Developed redness and swelling and the right 3rd finger yesterday. Area is draining some yellowish brown pus at this time Has tried to soak it in warm water and applied antibiotic ointment. On exam patient has pink, warm, and dry, redness, swelling, and tenderness to palpation with yellowish brown discharge expressed from the right distal 3rd medial finger. Plan: I suspect patient has paronychia/possible ingrown toenail infection. Prescription for cephalexin and mupirocin cream was sent to the pharmacy. Patient requesting Diflucan as she gets yeast infections with antibiotics. Prescription for Diflucan was sent to the pharmacy as well. Supportive measures were discussed with the patient and they voiced understanding discharge instructions and agrees to treatment plan. Return precautions reviewed Differential Diagnosis Differential diagnosis: Likely abscess, abrasion and other (Paronychia, ingrown fingernail infection) Discharge Plan Discharge Clinical Impression: Ingrown nail of right middle finger Patient Disposition: Home Condition: Stable Instructions: Antibiotic Form, Paronychia (ED) Additional Instructions: Keep area clean and dry May do warm Epson salt soaks 3-4 times daily May take Tylenol/Motrin as needed for pain Take Keflex, mupirocin cream, and Diflucan as prescribed Follow-up with your PCP in 3-5 days if symptoms persist or sooner if they worsen Patient Language: Mongolian Prescriptions: New mupirocin [Centany] 2 % ointment 1 applic topical BID 7 Days Qty: 22 0RF cephalexin 500 mg capsule 500 mg PO Q8H 7 Days Qty: 21 0RF fluconazole 150 mg tablet 150 mg PO ONCE Qty: 2 0RF Rx Instructions: as a single dose. May repeat in 72 hours if needed. No Action clobetasol 0.05 % cream 1 applic topical DAILY PRN (Reason: vulvar itching) Qty: 60 2RF magnesium 200 mg tablet 200 mg PO DAILY mecobalamin (vitamin B12) 500 mcg tablet,chewable PO DAILY clindamycin phosphate 1 % gel 1 applic topical BID PRN fluticasone propionate [Flonase Allergy Relief] 50 mcg/actuation spray,suspension 1 spray intranasal DAILY PRN Rx Instructions: administer into each nostril Allergy Relief (cetirizine) 10 mg capsule 10 mg PO DAILY ergocalciferol (vitamin D2) 1,250 mcg (50,000 unit) capsule 1,250 mcg PO WEEKLY Qty: 12 1RF ferrous sulfate 325 mg (65 mg iron) tablet 325 mg PO .COMPLEX Rx Instructions: 325 mg orally; Alternate your dosage every other day from 1 pill to two pills levothyroxine [Synthroid] 125 mcg tablet 125 mcg PO DAILY Qty: 90 1RF Follow-up/Referrals: Laureen Washburn DO [Primary Care Provider, [facility]] Time of Disposition: 12:02 Quality NIHSS Nursing Documentation ED NIHSS nursing documentation: reviewed/agree
== END 2025-01-02 12:10 | disposition home or self-care (01) ==
PROVIDERS: Emergency Provider Nurse Practitioner Family; PCP Family Medicine
DX: L60.0 Ingrowing nail (principal); F17.200 Nicotine dependence, unspecified, uncomplicated; E03.9 Hypothyroidism, unspecified; D64.9 Anemia, unspecified
CPT/HCPCS: 99213; G0463